=== PATIENT | female | born 1945 | race Caucasian/White ===

== ENCOUNTER 2017-02-20 22:54 | Observation (INO) | payer OTHER ==
[~2017-02-20] VITALS: Ht 160 cm; Wt 111.0 kg
[~2017-02-20 22:54] MED LIST: BIOT10004 PO; BUPR150T66 PO; CALC600T34 PO; DYAZ37.52 PO; FISH1000 PO; METO50TA PO; OXYB5TAB PO; PRAV20TA67 PO; PREM0.622 PO; RANI150T PO; TAB-TAB PO; TETR500 PO
[2017-02-20 22:59] VITALS: BP 138/79; PULSE 87; RESP 18; TEMP 98.4; O2SAT 98
[2017-02-20] MEDS ORDERED: SULF500T3 PO (23:13)
[2017-02-20] MEDS ORDERED: ONDANSETRON HCL 4 MG/2 ML VIAL IV PUSH ONE (23:15)
[2017-02-20] MEDS ORDERED: SODIUM CHLORIDE 0.9% FLUSH 10 ML FLUSH IV FLUSH PRN (23:15)
[2017-02-20] MEDS ORDERED: SODIUM CHLOR 0.9% 1000 ML INJ 1,000 ML IV ONE (23:15)
--- NOTE | 2017-02-20 23:27 | PD ---
HPI Chief Complaint: GI Complaint Time Seen by Provider: 23:12 Travel History International Travel<30 days: No Contact w/Intl Traveler<30days: No Traveled to known affect area: No History of Present Illness HPI 71-year-old female presents to the emergency department for complaint of abdominal pain nausea vomiting and diarrhea. Symptoms began since approximately 7 PM. Patient also complains of generalized fatigue since this morning. Patient has history of colon inflammation for which she has been prescribed sulfasalazine by her supervisor [employer]ili[employer] but denies diagnosis of inflammatory bowel disease or colitis. Patient also has history of breast cancer and is status post right lumpectomy tumor excision and of note excision several years ago and is currently under the care of Dr Alexandra and taking Letrozol. Patient states symptoms scan after eating chicken noodle soup. Patient's had 3 episodes of vomiting and 2 episodes of watery diarrhea. No bilious emesis, hematemesis, coffee-ground emesis, melanoma, or hematochezia. Patient denies fever. Patient reports upon arrival to the emergency department that she has felt chilled. No recent respiratory illness symptoms no urinary symptoms no skin rash or joint swelling or myalgia or arthralgia symptoms. Patient does not have chest pain and does not report shortness of breath. 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 chemotherapy and radiation therapy, upper and lower endoscopy ,colon Inflammation/colitis, bilateral tubal ligation, hysterectomy, cholecystectomy, anxiety depression, dyslipidemia, hypertension ?: Not Social History Tobacco Use: No Allergies-Medications (Allergen,Severity, Reaction): Coded Allergies: adhesive (Unverified Allergy, Unknown, 02/19/17) theophylline (Unverified Allergy, Unknown, 02/19/17) Reported Meds & Prescriptions Reported Meds & Active Scripts Active Reported Womens One Daily (Multiple Vitamins W/ Minerals) 1 Tab Tab 1 Tab PO DAILY Vitamin D (Cholecalciferol) 2,000 Unit Tab 1 Tab PO BID Triamterene-Hydrochlorothiazide 37.5-25 Mg Tab 1 Tab PO DAILY Tizanidine (Tizanidine HCl) 2 Mg Tab 2 Mg PO TID Ranitidine (Ranitidine HCl) 150 Mg Tab 150 Mg PO DAILY PRN Pravastatin 20 Mg Tab 20 Mg PO HS Ditropan (Oxybutynin Chloride) 5 Mg Tab 5 Mg PO Q12HR Omeprazole 20 Mg Tab 20 Mg PO DAILY Metoprolol Tartrate 50 Mg Tab 50 Mg PO BID Melatonin 1 Mg Tablet 1 Mg PO HS Letrozole 2.5 Mg Tab 1 Tab PO DAILY Diphenoxylate-Atropine 2.5-0.025 Mg Tab 1 Tab PO Q6H PRN Citalopram (Citalopram Hydrobromide) 20 Mg Tab 20 Mg PO DAILY Calcium 1000 + D (Calcium Carbonate-Cholecalciferol) 1,000-800 Mg-Unit Tab 1 Tab PO BID Biotin 10,000 Mcg Capsule 1 Cap PO BID B12 (Cyanocobalamin) 1,000 Mcg Tab 1 Tab PO DAILY Alcortin A Topical (Bnhzhascdg-Nmjkittskylnvh-Hrpd Topical) 1-2-1% Gel 1 Applic TOPICAL TID PRN Aspirin 81 Mg Chew 162 Mg CHEW DAILY Sulfasalazine 500 Mg Tab 1,000 Mg PO BIDPC Review of Systems Except as stated in HPI: all other systems reviewed are Neg Physical Exam Narrative GENERAL: Well-developed well-nourished female in no acute distress no respiratory distress; triage vital signs within normal range SKIN: Warm and dry. HEAD: Normocephalic. EYES: No scleral icterus. No injection or drainage. NECK: Supple, trachea midline. No JVD or lymphadenopathy. CARDIOVASCULAR: Regular rate and rhythm without murmurs, gallops, or rubs. RESPIRATORY: Breath sounds equal bilaterally. No accessory muscle use. GASTROINTESTINAL: Abdomen soft, mild epigastric tenderness to palpation without guarding or rebound, nondistended. MUSCULOSKELETAL: No cyanosis, or edema. Radial and dorsalis pedis pulses 2+ to palpation bilaterally BACK: Nontender without obvious deformity. No CVA tenderness. Data Data Last Documented VS Vital Signs Date Time Temp Pulse Resp B/P Pulse Ox O2 Delivery O2 Flow Rate FiO2 02/21/17 01:25 72 16 126/62 96 Room Air 02/20/17 22:59 98.4 Orders Ondansetron Inj (Zofran Inj) (02/20/17 23:15) Sodium Chlor 0.9% 1000 Ml Inj (Ns 1000 M (02/20/17 23:15) Complete Blood Count With Diff (02/20/17 23:12) Comprehensive Metabolic Panel (02/20/17 23:12) Lipase (02/20/17 23:12) Prothrombin Time / Inr (Pt) (02/20/17 23:12) Act Partial Throm Time (Ptt) (02/20/17 23:12) Urinalysis - C+S If Indicated (02/20/17 23:12) Iv Access Insert/Monitor (02/20/17 23:12) Ecg Monitoring (02/20/17 23:12) Oximetry (02/20/17 23:12) Sodium Chloride 0.9% Flush (Ns Flush) (02/20/17 23:15) Enteric Path (Stool) (02/20/17 23:12) Lactic Acid (02/20/17 23:18) Blood Culture (02/20/17 23:18) Magnesium (Mg) (02/20/17 23:12) Ct Abd/Pel W Iv Contrast(Rout) (02/20/17 ) Chest, Single Ap (02/20/17 ) Piperacil-Tazo 4.5 Gm Premix (Zosyn 4.5 (02/21/17 00:15) Iohexol 350 Inj (Omnipaque 350 Inj) (02/21/17 00:35) Lactic Acid (02/21/17 01:28) Labs Laboratory Tests Test 02/20/17 23:25 White Blood Count 17.4 TH/MM3 Red Blood Count 4.83 MIL/MM3 Hemoglobin 14.3 GM/DL Hematocrit 42.3 % Mean Corpuscular Volume 87.7 FL Mean Corpuscular Hemoglobin 29.6 PG Mean Corpuscular Hemoglobin 33.7 % Concent Red Cell Distribution Width 13.5 % Platelet Count 203 TH/MM3 Mean Platelet Volume 9.5 FL Neutrophils (%) (Auto) 90.1 % Lymphocytes (%) (Auto) 3.1 % Monocytes (%) (Auto) 3.8 % Eosinophils (%) (Auto) 0.6 % Basophils (%) (Auto) 2.4 % Neutrophils # (Auto) 15.7 TH/MM3 Lymphocytes # (Auto) 0.5 TH/MM3 Monocytes # (Auto) 0.7 TH/MM3 Eosinophils # (Auto) 0.1 TH/MM3 Basophils # (Auto) 0.4 TH/MM3 CBC Comment DIFF FINAL Differential Comment Prothrombin Time 10.9 SEC Prothromb Time International 1.0 RATIO Ratio Activated Partial 26.0 SEC Thromboplast Time Sodium Level 137 MEQ/L Potassium Level 3.2 MEQ/L Chloride Level 101 MEQ/L Carbon Dioxide Level 25.1 MEQ/L Anion Gap 11 MEQ/L Blood Urea Nitrogen 20 MG/DL Creatinine 1.00 MG/DL Estimat Glomerular Filtration 55 ML/MIN Rate Random Glucose 149 MG/DL Lactic Acid Level 2.8 mmol/L Calcium Level 9.8 MG/DL Magnesium Level 1.6 MG/DL Total Bilirubin 0.5 MG/DL Aspartate Amino Transf 25 U/L (AST/SGOT) Alanine Aminotransferase 32 U/L (ALT/SGPT) Alkaline Phosphatase 113 U/L Total Protein 7.8 GM/DL Albumin 3.7 GM/DL Lipase 103 U/L [facility] Medical Decision Making Medical Screen Exam Complete: Yes Emergency Medical Condition: Yes Medical Record Reviewed: Yes (gastroenteritis dyslipidemia hypertension interval bowel syndrome osteopenia right breast ductal carcinoma status post lumpectomy and axillary lymph node dissection EGD colonoscopy breast biopsy cholecystectomy hysterectomy [id number] bony metastasis XRT) Differential Diagnosis Abdominal pain, food borne illness, gastroenteritis, colitis, bowel obstruction , pancreatitis, gastritis, peptic ulcer disease Narrative Course Patient placed on night monitor IV access weren't specimens collected and sent for resulting Patient given IV fluids IV Zofran CBC is automated differential white count 17,000 with left shift will administer IV antibiotic presumptively for acute colitis @ 12:[address] Sepsis Criteria SIRS Criteria (2 or more): WBC > 09423, < 4000 or > 10% bands Faviola Garnica MD Feb 20, 2017 23:27
[2017-02-20 23:49] LABS: AUTOMATED NEUTROPHIL # 15.7 TH/MM3 (1.8-7.7); BASOPHIL # 0.4 TH/MM3 (0-0.2); BASOPHIL % 2.4 % (0.0-2.0); EOSINOPHIL # 0.1 TH/MM3 (0-0.4); EOSINOPHIL % 0.6 % (0.0-4.0); HEMATOCRIT 42.3 % (35.0-46.0); LYMPH % 3.1 % (9.0-44.0); LYMPHOCYTE # 0.5 TH/MM3 (1.0-4.8); MEAN CELL VOLUME 87.7 FL (80.0-100.0); MEAN CORPUSCULAR HEMOGLOBIN 29.6 PG (27.0-34.0); MEAN CORPUSCULAR HGB CONC 33.7 % (32.0-36.0); MONO % 3.8 % (0.0-8.0); NEUT % 90.1 % (16.0-70.0); PLATELET COUNT 203 TH/MM3 (150-450); RED BLOOD COUNT 4.83 MIL/MM3 (4.00-5.30); RED CELL DISTRIBUTION WIDTH 13.5 % (11.6-17.2); WHITE BLOOD COUNT 17.4 TH/MM3 (4.0-11.0)
[2017-02-20 23:50] LABS: HEMO FLAGS DIFF FINAL
[2017-02-20 23:57] LABS: CHLORIDE 101 MEQ/L (98-107); POTASSIUM 3.2 MEQ/L (3.5-5.1); SODIUM (NA) 137 MEQ/L (136-145)
[2017-02-21] VITALS (7 sets, daily range): BP systolic 115–188; BP diastolic 62–95; PULSE 61–73; RESP 16–18; TEMP 97.2–98.4; O2SAT 93–97
[2017-02-21 00:01] LABS: ANION GAP 11 MEQ/L (5-15); BICARBONATE 25.1 MEQ/L (21.0-32.0); BLOOD UREA NITROGEN 20 MG/DL (7-18); MAGNESIUM 1.6 MG/DL (1.5-2.5)
[2017-02-21 00:02] LABS: PROTHROMBIN TIME - PATIENT 10.9 SEC (9.8-11.6)
[2017-02-21 00:04] LABS: ALT (GPT) 32 U/L (10-53); AST (GOT) 25 U/L (15-37); GLOMERULAR FILTRATION RATE 55 ML/MIN (>89)
[2017-02-21 00:05] LABS: TOTAL BILIRUBIN ADULT 0.5 MG/DL (0.2-1.0)
[2017-02-21 00:07] LABS: ALKALINE PHOSPHATASE 113 U/L (45-117)
[2017-02-21] MEDS ORDERED: CYAN1TAB24 PO (00:07)
[2017-02-21] MEDS ORDERED: DIPH2.5T14 PO (00:07)
[2017-02-21] MEDS ORDERED: MELA1TAB32 PO (00:07)
[2017-02-21] MEDS ORDERED: CALCTAB80 PO (00:07)
[2017-02-21] MEDS ORDERED: LETR2.5T PO (00:07)
[2017-02-21] MEDS ORDERED: CITA20TA4 PO (00:07)
[2017-02-21] MEDS ORDERED: ASPI81CH CHEW (00:07)
[2017-02-21] MEDS ORDERED: [UNRECOGNIZED DRUG - CODE] TOPICAL (00:07)
[2017-02-21] MEDS ORDERED: [UNRECOGNIZED DRUG - CODE] PO (00:07)
[2017-02-21] MEDS ORDERED: METO50TA PO (00:07)
[2017-02-21] MEDS ORDERED: TIZA2TAB PO (00:08)
[2017-02-21] MEDS ORDERED: VITA20003 PO (00:08)
[2017-02-21] MEDS ORDERED: OMEP20TA PO (00:08)
[2017-02-21] MEDS ORDERED: OXYB5TAB10 PO (00:08)
[2017-02-21] MEDS ORDERED: TRIA37.5 PO (00:08)
[2017-02-21] MEDS ORDERED: PRAV20TA2 PO (00:08)
[2017-02-21] MEDS ORDERED: WOMETAB5 PO (00:08)
[2017-02-21] MEDS ORDERED: RANI150T PO (00:08)
[2017-02-21] MEDS ORDERED: PIPERACIL-TAZO 4.5 GM PREMIX 100 ML IV ONE (00:15)
[2017-02-21] MEDS ORDERED: IOHEXOL 350 MG/ML 10 ML VIAL (for RAD DIAG) IV ONE (00:35)
--- NOTE | 2017-02-21 00:35 | RADRPT ---
EXAM DATE/TIME: 02/21/2017 00:19 [facility] COMPARISON: No previous studies available for comparison. INDICATIONS : Shortness of breath. MEDICAL HISTORY : None. SURGICAL HISTORY : None. ENCOUNTER: Initial ACUITY: 1 day PAIN SCORE: 0/10 LOCATION: Bilateral chest FINDINGS: A single view of the chest demonstrates the lungs to be symmetrically aerated without evidence of mas s, infiltrate or effusion. The heart is mildly enlarged. Central bronchopulmonary markings well del ineated. Mild tortuosity descending thoracic aorta.. Osseous structures are intact. CONCLUSION: Cardiomegaly without radiographic evidence of congestive failure. Kevin Metz MD on February 21, 2017 at 0:33 Board Certified Radiologist. This report was verified electronically.
--- NOTE | 2017-02-21 01:08 | RADRPT ---
EXAM DATE/TIME: 02/21/2017 00:31 [facility] COMPARISON: No previous studies available for comparison. INDICATIONS : Nausea, vomiting, and diarrhea. IV CONTRAST: 100 cc Omnipaque 350 (iohexol) IV ORAL CONTRAST: No oral contrast ingested. RADIATION DOSE: 28.19 CTDIvol (mGy) ; Patient body habitus MEDICAL HISTORY : Gastroesophageal reflux disease. Carcinoma, breast. Metastatic disease. SURGICAL HISTORY : Hysterectomy. Cholecystectomy.Oopherectomy, bilateral. ENCOUNTER: Initial ACUITY: 1 day PAIN SCALE: 0/10 LOCATION: abdomen TECHNIQUE: Volumetric scanning of the abdomen and pelvis was performed. Using automated exposure control and ad justment of the mA and/or kV according to patient size, radiation dose was kept as low as reasonably achievable to obtain optimal diagnostic quality images. DICOM format image data is available electro nically for review and comparison. FINDINGS: LOWER LUNGS: The visualized lower lungs are clear. Large hiatus hernia containing the fundus of the stomach, benton uring 6 cm in width. LIVER: Homogeneous density without lesion. There is no dilation of the biliary tree. Cholecystectomy SPLEEN: Normal size without lesion. PANCREAS: Within normal limits. KIDNEYS: Normal in size and shape. There is no mass, stone or hydronephrosis. ADRENAL GLANDS: Within normal limits. VASCULAR: There is no aortic aneurysm. BOWEL/MESENTERY: The stomach, small bowel, and colon demonstrate no acute abnormality. There is no free intraperitone al air or fluid. ABDOMINAL WALL: Within normal limits. RETROPERITONEUM: There is no lymphadenopathy. BLADDER: No wall thickening or mass. REPRODUCTIVE: Within normal limits. INGUINAL: There is no lymphadenopathy or hernia. MUSCULOSKELETAL: Within normal limits for patient age. CONCLUSION: 1. Moderate size hiatus hernia. 2. Otherwise negative CT abdomen/pelvis with contrast. Kevin Metz MD on February 21, 2017 at 0:55 Board Certified Radiologist. This report was verified electronically.
[2017-02-21 01:45] LABS: BLOOD, URINE NEG (NEG); GLUCOSE,URINE NEG (NEG); KETONE, URINE TRACE mg/dL (NEG); NITRITE,URINE NEG (NEG); PH, URINE 5.5 (5.0-8.5)
[2017-02-21 01:46] LABS: URINE COLOR YELLOW (YELLW/STRAW)
[2017-02-21 01:49] LABS: COMMENT (UR) CULT NOT INDICATED; CULTURE IF INDICATED CULT NOT INDICATED; RBC, URINE 0-2 /hpf (0-3); SQUAMOUS EPITHELIAL CELL URINE 0-5 /hpf (0-5); WBC, URINE 0-2 /hpf (0-5)
[2017-02-21] MEDS ORDERED: NALOXONE HCL 0.4 MG/ML AMP IV PRN (02:00)
[2017-02-21] MEDS ORDERED: SODIUM CHLORIDE 0.9% FLUSH 10 ML FLUSH IVF PRN (02:00)
[2017-02-21] MEDS ORDERED: SODIUM CHLORIDE 0.9% FLUSH 10 ML FLUSH IV FLUSH PRN (02:00)
[2017-02-21] MEDS ORDERED: PIPERACIL-TAZO 4.5 GM PREMIX 100 ML IV SCH (06:00)
[2017-02-21] MEDS ORDERED: SODIUM CHLORIDE 0.9% FLUSH 10 ML FLUSH IV FLUSH SCH ×2 (09:00)
--- NOTE | 2017-02-21 11:07 | HHI.HP ---
HPI Service [facility] Primary Care Physician Parviz Moore Do, MD Admission Diagnosis abdominal pain w/ leukocytosis; elevated lactate Diagnoses: Chief Complaint: Nausea, vomiting, and diarrhea Travel History International Travel<30 Days: No Contact w/Intl Traveler <30 Da: No Traveled to Known Affected Are: No History of Present Illness 71-year-old female with a medical history significant for hypertension, breast cancer status post lumpectomy, unspecified colitis present to the emergency room with complaint of nausea, vomiting and 2 episodes of diarrhea last night. The patient reports she was in her usual state of health until yesterday evening when she started experiencing the symptoms. She has had nonbloody nonbilious emesis and nonbloody, watery diarrhea. She denies any fevers. No cough, chest pain, or shortness of breath. She denies any dysuria or any other urinary symptoms. She denies any known sick contact. She did it in some chicken at a restaurant the night before. Review of Systems Constitutional: DENIES: Fever, Chills Respiratory: DENIES: Cough, Sputum production, Shortness of breath Gastrointestinal: COMPLAINS OF: Diarrhea, Nausea, Vomiting Except as stated in HPI: all other systems reviewed are Neg Past Family Social History Past Medical History History of breast cancer status post lumpectomy and lymph node excision. Known metastatic disease to the spine but asymptomatic. Hypertension Hyperlipidemia GERD Chronic diarrhea, reportedly had unspecified colitis. Was started on sulfa was in a week ago by GI. Symptoms did improve. Past Surgical History Hysterectomy Bilateral tubal ligation Cholecystectomy Breast lumpectomy Reported Medications Reported Meds & Active Scripts Active Reported Womens One Daily (Multiple Vitamins W/ Minerals) 1 Tab Tab 1 Tab PO DAILY Vitamin D (Cholecalciferol) 2,000 Unit Tab 1 Tab PO BID Triamterene-Hydrochlorothiazide 37.5-25 Mg Tab 1 Tab PO DAILY Tizanidine (Tizanidine HCl) 2 Mg Tab 2 Mg PO TID Ranitidine (Ranitidine HCl) 150 Mg Tab 150 Mg PO DAILY PRN Pravastatin 20 Mg Tab 20 Mg PO HS Ditropan (Oxybutynin Chloride) 5 Mg Tab 5 Mg PO Q12HR Omeprazole 20 Mg Tab 20 Mg PO DAILY Metoprolol Tartrate 50 Mg Tab 50 Mg PO BID Melatonin 1 Mg Tablet 1 Mg PO HS Letrozole 2.5 Mg Tab 1 Tab PO DAILY Diphenoxylate-Atropine 2.5-0.025 Mg Tab 1 Tab PO Q6H PRN Citalopram (Citalopram Hydrobromide) 20 Mg Tab 20 Mg PO DAILY Calcium 1000 + D (Calcium Carbonate-Cholecalciferol) 1,000-800 Mg-Unit Tab 1 Tab PO BID Biotin 10,000 Mcg Capsule 1 Cap PO BID B12 (Cyanocobalamin) 1,000 Mcg Tab 1 Tab PO DAILY Alcortin A Topical (Lrexzfhxaj-Txxhrnflgldryu-Nbwc Topical) 1-2-1% Gel 1 Applic TOPICAL TID PRN Aspirin 81 Mg Chew 162 Mg CHEW DAILY Sulfasalazine 500 Mg Tab 1,000 Mg PO BIDPC Allergies: Coded Allergies: adhesive (Verified Allergy, Unknown, 02/21/17) theophylline (Verified Allergy, Unknown, 02/21/17) Family History Mother from complications of pancreatic cancer Father from [place] in his 40s. Physical Exam Vital Signs Vital Signs Date Time Temp Pulse Resp B/P Pulse Ox O2 Delivery O2 Flow Rate FiO2 02/21/17 08:56 93 02/21/17 08:00 98.4 68 18 115/95 95 02/21/17 03:18 94 21 02/21/17 01:25 72 16 126/62 96 Room Air 02/21/17 00:18 71 188/76 97 Room Air 02/20/17 22:59 98.4 87 18 138/79 98 Physical Exam GENERAL: This is a well-nourished, well-developed patient, in no apparent distress. SKIN: No rashes, ecchymoses or lesions. Cool and dry. HEAD: Atraumatic. Normocephalic. No temporal or scalp tenderness. EYES: Pupils equal round and reactive. Extraocular motions intact. No scleral icterus. No injection or drainage. ENT: Nose without bleeding, purulent drainage or septal hematoma. Throat without erythema, tonsillar hypertrophy or exudate. Uvula midline. Airway patent. NECK: Trachea midline. No JVD or lymphadenopathy. Supple, nontender, no meningeal signs. CARDIOVASCULAR: Regular rate and rhythm without murmurs, gallops, or rubs. RESPIRATORY: Clear to auscultation. Breath sounds equal bilaterally. No wheezes , rales, or rhonchi. GASTROINTESTINAL: Abdomen soft, non-tender, nondistended. No hepato-splenomegaly , or palpable masses. No guarding. MUSCULOSKELETAL: Extremities without clubbing, cyanosis, or edema. No joint tenderness, effusion, or edema noted. No calf tenderness. Negative Homans sign bilaterally. NEUROLOGICAL: Awake and alert. Cranial nerves II through XII intact. Motor and sensory grossly within normal limits. Five out of 5 muscle strength in all muscle groups. Normal speech. Laboratory Laboratory Tests Test 02/20/17 02/21/17 02/21/17 23:25 01:30 01:40 White Blood Count 17.4 Red Blood Count 4.83 Hemoglobin 14.3 Hematocrit 42.3 Mean Corpuscular Volume 87.7 Mean Corpuscular Hemoglobin 29.6 Mean Corpuscular Hemoglobin 33.7 Concent Red Cell Distribution Width 13.5 Platelet Count 203 Mean Platelet Volume 9.5 Neutrophils (%) (Auto) 90.1 Lymphocytes (%) (Auto) 3.1 Monocytes (%) (Auto) 3.8 Eosinophils (%) (Auto) 0.6 Basophils (%) (Auto) 2.4 Neutrophils # (Auto) 15.7 Lymphocytes # (Auto) 0.5 Monocytes # (Auto) 0.7 Eosinophils # (Auto) 0.1 Basophils # (Auto) 0.4 CBC Comment DIFF FINAL Differential Comment Prothrombin Time 10.9 Prothromb Time International 1.0 Ratio Activated Partial 26.0 Thromboplast Time Sodium Level 137 Potassium Level 3.2 Chloride Level 101 Carbon Dioxide Level 25.1 Anion Gap 11 Blood Urea Nitrogen 20 Creatinine 1.00 Estimat Glomerular Filtration 55 Rate Random Glucose 149 Lactic Acid Level 2.8 2.7 Calcium Level 9.8 Magnesium Level 1.6 Total Bilirubin 0.5 Aspartate Amino Transf 25 (AST/SGOT) Alanine Aminotransferase 32 (ALT/SGPT) Alkaline Phosphatase 113 Total Protein 7.8 Albumin 3.7 Lipase 103 Urine Color YELLOW Urine Turbidity CLEAR Urine pH 5.5 Urine Specific [place] GREATER THAN 1.035 Urine Protein NEG Urine Glucose (UA) NEG Urine Ketones TRACE Urine Occult Blood NEG Urine Nitrite NEG Urine Bilirubin NEG Urine Leukocyte Esterase NEG Urine RBC 0-2 Urine WBC 0-2 Urine Squamous Epithelial 0-5 Cells Urine Bacteria NONE Microscopic Urinalysis Comment CULT NOT INDICATED Date/Time Procedure Status Source Growth 02/20/17 23:40 Aerobic Blood Culture Received Blood Peripheral Pending 02/20/17 23:40 Anaerobic Blood Culture Received Blood Peripheral Pending Result Diagram: 02/20/17 2325 02/20/17 2325 Assessment and Plan Problem List: (1) Gastroenteritis ICD Code: K52.9 Status: Acute (2) Elevated lactic acid level ICD Code: R79.89 Status: Acute (3) Hypokalemia ICD Code: E87.6 Status: Acute Assessment and Plan 71-year-old female with symptoms consistent with gastroenteritis. This is likely viral. Symptoms quickly resolving. We will provide IV fluid - Replace K to correct hypokalemia - Repeat labs later today - OK to start a diet - Hold off antibiotics. Continue home dose medications for all her chronic conditions including HTN, hyperlipidemia, anxiety and depression. Courtney Kerns MD Feb 21, 2017 11:07
[2017-02-21] MEDS ORDERED: SODIUM CHLOR 0.9% 1000 ML INJ 1,000 ML IV ONE (11:15)
[2017-02-21] MEDS ORDERED: POTASSIUM CHLOR 20 MEQ PREMIX 100 ML IV ONE (11:15)
[2017-02-21 17:25] LABS: BICARBONATE 27.4 MEQ/L (21.0-32.0)
--- NOTE | 2017-02-21 17:31 | HHI.DCPOC ---
Discharge Care Plan Diagnosis: (1) Gastroenteritis (2) Hypokalemia Goals to Promote Your Health * To prevent worsening of your condition and complications * To maintain your health at the optimal level Directions to Meet Your Goals Take your medications as prescribed Follow your dietary instruction Follow activity as directed Keep your appointments as scheduled Take your immunizations and boosters as scheduled If your symptoms worsen call your PCP, if no PCP go to Urgent Care Center or Emergency Room Smoking is Dangerous to Your Health. Avoid second hand smoke Call the 24-hour hour crisis hotline for domestic abuse at Courtney Kerns MD Feb 21, 2017 17:31
[2017-02-21] MEDS ORDERED: sulfaSALAzine 500 MG TAB PO SCH (18:00)
[2017-02-21] MEDS ORDERED: MELATONIN 1 MG PO SCH (21:00)
[2017-02-21] MEDS ORDERED: BIOTIN PO SCH (21:00)
[2017-02-21] MEDS ORDERED: METOPROLOL TARTRATE 50 MG TAB PO SCH (21:00)
[2017-02-21] MEDS ORDERED: PRAVASTATIN SOD 20 MG TAB PO SCH (21:00)
[2017-02-21] MEDS ORDERED: OXYBUTYNIN CHLORIDE 5 MG TAB PO SCH (21:00)
[2017-02-22] MEDS ORDERED: ASPIRIN 81 MG CHEW TAB CHEW SCH (09:00)
[2017-02-22] MEDS ORDERED: PANTOPRAZOLE SOD 20 MG DELAYED RELEASE TAB PO SCH (09:00)
[2017-02-22] MEDS ORDERED: MULTIVITAMINS/MINERALS THERAPEUTIC TAB PO SCH (09:00)
[2017-02-22] MEDS ORDERED: TRIAMTERENE/HCTZ 37.5 MG/25 MG TAB PO SCH (09:00)
[2017-02-22] MEDS ORDERED: CYANOCOBALAMIN 1,000 MCG TAB PO SCH (09:00)
[2017-02-22] MEDS ORDERED: [UNRECOGNIZED DRUG - OTHER] PO SCH (09:00)
[2017-02-22] MEDS ORDERED: LETROZOLE PO SCH (09:00)
[2017-02-22] MEDS ORDERED: CITALOPRAM HYDROBROMIDE 20 MG TAB PO SCH (09:00)
== END 2017-02-21 18:10 | disposition home or self-care (01) ==
LOC: PHED 22:54 → PHEDA 02-21 02:00 → PH3B 02-21 02:40
PROVIDERS: ADMIT Family Medicine; ATTEND Family Medicine
DX: K52.9 Noninfective gastroenteritis and colitis, unspecified (principal); E87.6 Hypokalemia; E78.5 Hyperlipidemia, unspecified; R74.0 Nonspecific elevation of levels of transaminase and lactic acid dehydrogenase [LDH]; F41.9 Anxiety disorder, unspecified; R06.02 Shortness of breath; F32.9 Major depressive disorder, single episode, unspecified; K21.9 Gastro-esophageal reflux disease without esophagitis; I10 Essential (primary) hypertension; C79.51 Secondary malignant neoplasm of bone; Z79.899 Other long term (current) drug therapy; Z85.3 Personal history of malignant neoplasm of breast; Z79.82 Long term (current) use of aspirin
CPT/HCPCS: 71010; 74177; 80048; 80053; 81001; 83605; 83690; 83735; 85025; 85610; 85730; 87040; 96365; 96366; 96375; 97162; 99285; G0378; G8987; G8988; J2405; J2543; J3480; J7030; Q9967

== ENCOUNTER 2017-10-11 12:18 | Emergency (ER) | payer OTHER ==
[~2017-10-11] VITALS: Ht 160 cm; Wt 115.8 kg
[~2017-10-11 12:18] MED LIST changes: +ASPI-516 CHEW; -BIOT10004 PO; +BIOT1CAP3 PO; -BUPR150T66 PO; -CALC600T34 PO; +CALCTAB80 PO; +CITA20TA4 PO; +CYAN1TAB24 PO; +DIPH2.5T14 PO; -DYAZ37.52 PO; -FISH1000 PO; +LETR2.5T PO; +MELA1TAB32 PO; +OMEP20TA93 PO; -OXYB5TAB PO; +OXYB5TAB8 PO; +PRAV20TA2 PO; -PRAV20TA67 PO; -PREM0.622 PO; +SULF500T3 PO; -TAB-TAB PO; -TETR500 PO; +TIZA2TAB PO; +TRIA37.5 PO; +VITA20003 PO; +WOMETAB5 PO; +[UNRECOGNIZED DRUG - CODE] TOPICAL
[2017-10-11 12:21] VITALS: BP 185/84; PULSE 70; RESP 16; TEMP 98.6; O2SAT 96
[2017-10-11] MEDS ORDERED: PROPARACAINE HCL 0.5% OPHT SOLN 15 ML BTL EACH EYE ONE (12:30)
[2017-10-11] MEDS ORDERED: FASL250I (12:40)
[2017-10-11] MEDS ORDERED: NYST10007 TOPICAL (12:40)
[2017-10-11] MEDS ORDERED: TRAZ50TA12 PO (12:40)
[2017-10-11] MEDS ORDERED: PALB125C PO (12:40)
[2017-10-11] MEDS ORDERED: CYAN1TAB24 PO (12:40)
[2017-10-11] MEDS ORDERED: ATOR20TA15 PO (12:40)
[2017-10-11] MEDS ORDERED: BENZ1CAP54 PO (12:40)
--- NOTE | 2017-10-11 12:46 | PD ---
HPI Chief Complaint: Foreign Body Time Seen by Provider: 12:28 Travel History International Travel<30 days: No Contact w/Intl Traveler<30days: No Traveled to known affect area: No History of Present Illness HPI 71-year-old female presents to the emergency department for evaluation of possible foreign body to the right eye. Patient states she woke up this morning with the feeling of a foreign body to her right eye. She states she can feel it moving around. She denies any pain or visual changes. Patient does have history of metastatic breast cancer and is currently undergoing treatment. Patient denies any other symptoms or complaints at this time. She denies any injury or trauma to the eye. No photophobia. Mild severity. PFSH Past Medical History Hx Anticoagulant Therapy: Yes (162 MG. ASA DAILY) Arthritis: Yes (KNEES) Depression: Yes Cancer: Yes (RIGHT BREAST, METS TO SPINE T10 AND L5) Cardiac Catheterization: Yes (NO STENTS) Cardiovascular Problems: Yes (HTN CHOL) High Cholesterol: Yes (BORDERLINE) Chemotherapy: Yes (2012) Diabetes: No Gastrointestinal Disorders: Yes (IBS) GERD: Yes Genitourinary: Yes (OVERACTIVE BLADDER) Insomnia: Yes Musculoskeletal: Yes (OSTEOPENIA) Radiation Therapy: Yes (2015) Tetanus Vaccination: > 5 Years Influenza Vaccination: No ?: Not Menopausal: Yes : 1 Para: 1 Tubal Ligation: Yes Past Surgical History Cholecystectomy: Yes Gynecologic Surgery: Yes (BILATERAL OOPHORECTOMY: 1981, RIGHT BREAST TUMOR REMOVED WITH LYMPH NODES:2) Hysterectomy: Yes (1981) Oral Surgery: Yes (TOOTH EXTRACTION) Social History Alcohol Use: No Tobacco Use: No Substance Use: No Allergies-Medications (Allergen,Severity, Reaction): Coded Allergies: adhesive (Verified Allergy, Unknown, 10/11/17) theophylline (Verified Allergy, Unknown, 10/11/17) Reported Meds & Prescriptions Reported Meds & Active Scripts Active Reported Ibrance (Palbociclib) 125 Mg Capsule 1 Cap PO DIRECTED Trazodone (Trazodone HCl) 50 Mg Tab 50 Mg PO HS PRN Nystop Topical (Nystatin Topical) 100,000 Unit/Gm Powd 1 Applic TOPICAL DIRECTED Faslodex Inj (Fulvestrant) 250 Mg/5 Ml Syr Benzonatate 100 Mg Cap 100 Mg PO TID PRN B12 (Cyanocobalamin) 1,000 Mcg Tab 1 Tab PO DAILY Atorvastatin (Atorvastatin Calcium) 20 Mg Tab 60 Mg PO HS Womens One Daily (Multiple Vitamins W/ Minerals) 1 Tab Tab 1 Tab PO DAILY Vitamin D (Cholecalciferol) 2,000 Unit Tab 1 Tab PO BID Triamterene-Hydrochlorothiazide 37.5-25 Mg Tab 1 Tab PO DAILY Tizanidine (Tizanidine HCl) 2 Mg Tab 2 Mg PO TID Ranitidine (Ranitidine HCl) 150 Mg Tab 150 Mg PO DAILY PRN Ditropan (Oxybutynin Chloride) 5 Mg Tab 5 Mg PO Q12HR Omeprazole 20 Mg Tab 20 Mg PO DAILY Metoprolol Tartrate 50 Mg Tab 50 Mg PO BID Diphenoxylate-Atropine 2.5-0.025 Mg Tab 1 Tab PO Q6H PRN Citalopram (Citalopram Hydrobromide) 20 Mg Tab 20 Mg PO DAILY Calcium 1000 + D (Calcium Carbonate-Cholecalciferol) 1,000-800 Mg-Unit Tab 1 Tab PO BID Biotin 10,000 Mcg Capsule 1 Cap PO BID Alcortin A Topical (Ecaovlwbhm-Lvhnyaojhpyxfm-Ixrr Topical) 1-2-1% Gel 1 Applic TOPICAL TID PRN Aspirin 81 Mg Chew 162 Mg CHEW DAILY Sulfasalazine 500 Mg Tab 500 Mg PO BIDPC Review of Systems Except as stated in HPI: all other systems reviewed are Neg Physical Exam Narrative GENERAL: Well-nourished, well-developed elderly female patient, ambulatory. Afebrile SKIN: Focused skin assessment warm/dry. HEAD: Normocephalic. Atraumatic EYES: No scleral icterus. No injection or drainage. Upon upper lid eversion, a small piece of dirt was noted and was easily removed with a cotton swab. PERRLA. Fluorescein examination is negative. RESPIRATORY: No accessory muscle use. MUSCULOSKELETAL: No cyanosis, or edema. Data Data Last Documented VS Vital Signs Date Time Temp Pulse Resp B/P (MAP) Pulse Ox O2 Delivery O2 Flow Rate FiO2 10/11/17 12:21 98.6 70 16 185/84 (117) 96 Orders Orders Proparacaine 0.5% Opth Soln (Alcaine 0.5 (10/11/17 12:30) MDM Medical Decision Making Medical Screen Exam Complete: Yes Emergency Medical Condition: Yes Medical Record Reviewed: Yes Differential Diagnosis Foreign body in eye versus corneal abrasion versus iritis Narrative Course 71-year-old female presents to the emergency department for evaluation of foreign body sensation to the right eye. Upon examination, small piece of dirt was removed from the upper eyelid. Patient states she feels much better after this was removed. The rest examination is normal. The patient was discharged in stable condition with instructions, including return instructions and follow up instructions. Diagnosis Primary Impression: Foreign body of right eye Qualified Codes: T15.91XA - Foreign body on external eye, part unspecified, right eye, initial encounter Referrals: Primary Care Physician as needed Patient Instructions: Eye Foreign Body (ED), General Instructions Additional Instructions: Follow-up with a primary care physician as needed. Return to the emergency department for any acute worsening of symptoms. Med/Other Pt SpecificInfo: No Change to Meds Disposition: 01 DISCHARGE HOME Condition: Stable Nguyen Stephens Oct 11, 2017 12:46
== END 2017-10-11 13:09 | disposition home or self-care (01) ==
LOC: PHEFT 12:18
DX: T15.91XA Foreign body on external eye, part unspecified, right eye, initial encounter (principal); I10 Essential (primary) hypertension; E78.00 Pure hypercholesterolemia, unspecified; K21.9 Gastro-esophageal reflux disease without esophagitis; M17.9 Osteoarthritis of knee, unspecified; F32.9 Major depressive disorder, single episode, unspecified; Z87.19 Personal history of other diseases of the digestive system; Z79.82 Long term (current) use of aspirin; Z79.899 Other long term (current) drug therapy
CPT/HCPCS: 99282